=== PATIENT | male | born 1985 | race Caucasian/White ===

== ENCOUNTER 2018-07-06 13:26 | Emergency (ER) | payer MEDICAID ==
[~2018-07-06] VITALS: Ht 185.4 cm; Wt 154.0 kg
[~2018-07-06 13:26] MED LIST: ACET-812 PO; COLC0.6T69 PO; CYCL-1 PO; IBUP-1985 PO; NO HOME MEDS
[2018-07-06] MEDS ORDERED: TRAM50TA2 PO (15:15)
[2018-07-06 15:49] VITALS: BP 116/68
== END 2018-07-06 15:50 | disposition home or self-care (01) ==
LOC: ER 13:26
DX: G89.29 Other chronic pain (principal); M25.562 Pain in left knee; X58.XXXD Exposure to other specified factors, subsequent encounter
CPT/HCPCS: 99283

== ENCOUNTER 2018-12-06 13:50 | Emergency (ER) | payer MEDICAID ==
--- NOTE | 2018-12-06 14:19 | NUR ---
PT THINKS HE HAD AN ALLERGIC REACTION TO AN ALLERGY MEDICATION, HE IS FEELING BETTER NOW AND DOESNT WANT TO BE SEEN AT TAKING HIS VITALS IN TRIAGE. HR IN NORMAL RANGE.
== END 2018-12-06 15:08 | disposition left against medical advice (07) ==
LOC: ER 13:50
DX: R50.9 Fever, unspecified (principal); Z53.21 Procedure and treatment not carried out due to patient leaving prior to being seen by health care provider; Z79.899 Other long term (current) drug therapy

== ENCOUNTER 2019-08-07 11:46 | Emergency (ER) | payer MEDICAID ==
[2019-08-07 12:01] VITALS: BP 146/90
--- NOTE | 2019-08-07 12:04 | NUR ---
PT TOOK ONE 10MG NORCO AT 0900 TODAY
[2019-08-07] MEDS ORDERED: orphenadrine citrate 60mg/2ml inj. IM ONE (12:45)
--- NOTE | 2019-08-07 13:19 | NUR ---
called lab, to check to see if they had urine, she stated that she was in the process of rcv and that she had it
[2019-08-07 13:28] LABS: CLARITY,URINE CLEAR (Clear); COLOR,URINE YELLOW (Yellow); GLUCOSE, URINE NEGATIVE (Neg); KETONES,URINE NEGATIVE (Neg); LEUKOCYTE ESTERASE ,URINE NEGATIVE (Neg); NITRITES, URINE NEGATIVE (Neg); OCCULT BLOOD,URINE NEGATIVE (Neg); PH,URINE 7.5 (4.8-8.0); PROTEIN,URINE NEGATIVE (Neg); UROBILINOGEN,URINE 0.2 E.U/dL (0.2-1.0)
[2019-08-07 13:29] LABS: UA COLLECTION TYPE URINAL
[2019-08-07 13:33] LABS: URINE AMPHETAMINE SCREEN NEGATIVE (Neg); URINE BARBITUATE SCREEN NEGATIVE (Neg); URINE BENZODIAZEPINES SCREEN NEGATIVE (Neg); URINE CANNABINOID SCREEN NEGATIVE (Neg); URINE COCAINE SCREEN NEGATIVE (Neg); URINE METHADONE SCREEN NEGATIVE (Neg); URINE OPIATE SCREEN POSITIVE (Neg); URINE PHENCYCLIDINE SCREEN NEGATIVE (Neg)
[2019-08-07] MEDS ORDERED: CYCL-1 PO (13:33)
== END 2019-08-07 13:46 | disposition home or self-care (01) ==
LOC: ER 11:47
DX: M54.5 Low back pain (principal); R10.84 Generalized abdominal pain; G89.29 Other chronic pain; Z98.890 Other specified postprocedural states
CPT/HCPCS: 80305; 81003; 96372; 99283; J2360

== ENCOUNTER 2022-06-01 03:30 | Emergency (ER) | payer OTHER, MEDICAID ==
[~2022-06-01] VITALS: Ht 185.4 cm; Wt 159.1 kg
[~2022-06-01 03:30] MED LIST changes: -COLC0.6T69 PO; +COLC0.6T72 PO
[2022-06-01] MEDS ORDERED: oxyCODONE/APAP 10/325mg tablet PO ONE (06:55)
[2022-06-01] MEDS ORDERED: ketorolac trometh inj. 60 MG/2 ML VIAL IM ONE (06:55)
[2022-06-01 07:48] VITALS: BP 132/74
[2022-06-01 08:24] LABS: COLOR,URINE YELLOW (Yellow); GLUCOSE, URINE NEGATIVE (Neg); KETONES,URINE NEGATIVE (Neg); LEUKOCYTE ESTERASE ,URINE NEGATIVE (Neg); NITRITES, URINE NEGATIVE (Neg); OCCULT BLOOD,URINE SMALL (Neg); PH,URINE 5.5 (4.8-8.0); PROTEIN,URINE NEGATIVE (Neg); UROBILINOGEN,URINE 0.2 E.U/dL (0.2-1.0)
[2022-06-01 08:26] LABS: CLARITY,URINE SLIGHTLY CLOUDY (Clear); UA COLLECTION TYPE CLN CATCH MIDSTREAM
[2022-06-01 08:31] LABS: BACTERIA,URINE FEW /HPF (Neg); CAL OXALATE CRYSTALS 3+ /HPF (NEGATIVE); MUCUS STRANDS MODERATE /LPF (Neg); SQUAMOUS EPITHELIAL CELL,UR FEW /LPF (FEW); WBC,URINE 0-4 /HPF (0-4)
== END 2022-06-01 08:54 | disposition home or self-care (01) ==
LOC: ER 03:31
DX: M25.562 Pain in left knee (principal); G89.29 Other chronic pain
CPT/HCPCS: 81001; 96372; 99284; J1885

== ENCOUNTER 2023-04-02 16:11 | Emergency (ER) | payer MEDICAID ==
[~2023-04-02] VITALS: Ht 185.4 cm; Wt 159.1 kg
[2023-04-02 16:22] VITALS: BP 147/90; PULSE 85; RESP 16; TEMP 98; O2SAT 100
[2023-04-02 16:45] LABS: BILIRUBIN,URINE NEGATIVE (Neg); COLOR,URINE YELLOW (Yellow); GLUCOSE, URINE NEGATIVE (Neg); KETONES,URINE TRACE mg/dl (Neg); LEUKOCYTE ESTERASE ,URINE NEGATIVE (Neg); NITRITES, URINE NEGATIVE (Neg); OCCULT BLOOD,URINE NEGATIVE (Neg); PROTEIN,URINE NEGATIVE (Neg)
[2023-04-02 16:56] LABS: UA COLLECTION TYPE CLN CATCH MIDSTREAM
[2023-04-02 16:57] LABS: CLARITY,URINE SLIGHTLY CLOUDY (Clear)
[2023-04-02 16:58] LABS: BASOPHILS % (AUTO) 0.3 % (0-1); EOSINOPHILS # (AUTO) 0.1 X10'3 (0-0.9); EOSINOPHILS % (AUTO) 1.5 % (0-6); HEMATOCRIT 42.4 % (42.0-52.0); LYMPHOCYTES # (AUTO) 1.4 X10'3 (1.1-4.8); LYMPHOCYTES % (AUTO) 16.6 % (21-51); MEAN CORPUSCULAR HEMOGLOBIN 28.5 PG (27.0-31.0); MEAN CORPUSCULAR HGB CONC 33.1 g/dL (33.0-36.5); MEAN CORPUSCULAR VOLUME 86.2 FL (78-98); MEAN PLATELET VOLUME 7.5 FL (7.4-10.4); MONOCYTES # (AUTO) 0.7 X10'3 (0-0.9); MONOCYTES % (AUTO) 7.6 % (2-12); NEUTROPHILS # (AUTO) 6.4 X10'3 (1.8-7.7); PLATELET COUNT 234 X10'3 (140-440); RED BLOOD COUNT 4.92 X10'6 (4.70-6.10); RED CELL DISTRIBUTION WIDTH 13.9 % (11.5-14.5); WHITE BLOOD COUNT 8.6 X10'3 (4.5-11.0)
[2023-04-02 17:01] LABS: BACTERIA,URINE NONE SEEN /HPF (Neg); CAL OXALATE CRYSTALS 1+ /HPF (NEGATIVE); MUCUS STRANDS MANY /LPF (Neg); RBC,URINE NONE SEEN /HPF (0-2); SQUAMOUS EPITHELIAL CELL,UR FEW /LPF (FEW); WBC,URINE 0-4 /HPF (0-4)
[2023-04-02 17:12] LABS: ALANINE AMINOTRANSFERASE 38 U/L (12-78); ALBUMIN 3.7 G/DL (3.4-5.0); ALKALINE PHOSPHATASE 96 IU/L (46-116); ANION GAP 5 (8-16); ASPARTATE AMINO TRANSFERASE 15 U/L (10-37); BILIRUBIN,TOTAL 0.2 MG/DL (0.1-1.0); BLOOD UREA NITROGEN 10 MG/DL (7-18); BUN/CREATININE RATIO 10.2 (10.0-20.0); CHLORIDE 107 MMOL/L (99-107); CREATININE 0.98 MG/DL (0.60-1.10); GLUCOSE 154 MG/DL (70-104); LIPASE 68 U/L (73-393); POTASSIUM 4.3 MMOL/L (3.5-5.1); SODIUM 142 MMOL/L (135-145); TOTAL CARBON DIOXIDE 30.4 MMOL/L (24-32); TOTAL PROTEIN 7.3 G/DL (6.4-8.2); eCRCL 117 ML/MIN; eGFR 86 ML/MIN
== END 2023-04-02 23:34 | disposition left against medical advice (07) ==
LOC: ER 16:11
DX: R10.9 Unspecified abdominal pain (principal); Z53.21 Procedure and treatment not carried out due to patient leaving prior to being seen by health care provider
CPT/HCPCS: 36415; 80053; 81001; 83690; 85025; 99281

== ENCOUNTER 2023-12-11 13:45 | Emergency (ER) | payer MEDICAID ==
[~2023-12-11] VITALS: Ht 185.4 cm; Wt 154.6 kg
[2023-12-11 14:08] VITALS: BP 138/87
[2023-12-11 14:19] LABS: BASOPHILS % (AUTO) 0.3 % (0-1); EOSINOPHILS # (AUTO) 0.4 X10'3 (0-0.9); EOSINOPHILS % (AUTO) 4.9 % (0-6); HEMOGLOBIN 14.6 g/dl (14.0-17.9); LYMPHOCYTES # (AUTO) 2.4 X10'3 (1.1-4.8); LYMPHOCYTES % (AUTO) 26.8 % (21-51); MEAN CORPUSCULAR HEMOGLOBIN 28.3 PG (27.0-31.0); MEAN CORPUSCULAR HGB CONC 33.1 g/dL (33.0-36.5); MEAN CORPUSCULAR VOLUME 85.4 FL (78-98); MEAN PLATELET VOLUME 7.8 FL (7.4-10.4); MONOCYTES # (AUTO) 0.7 X10'3 (0-0.9); MONOCYTES % (AUTO) 7.5 % (2-12); NEUTROPHILS # (AUTO) 5.5 X10'3 (1.8-7.7); NEUTROPHILS % (AUTO) 60.5 % (42-75); PLATELET COUNT 292 X10'3 (140-440); RED BLOOD COUNT 5.15 X10'6 (4.70-6.10); RED CELL DISTRIBUTION WIDTH 14.6 % (11.5-14.5); WHITE BLOOD COUNT 9.1 X10'3 (4.5-11.0)
[2023-12-11 14:34] LABS: ALANINE AMINOTRANSFERASE 38 U/L (12-78); ALBUMIN 3.9 G/DL (3.4-5.0); ALKALINE PHOSPHATASE 111 IU/L (46-116); ANION GAP 6 (8-16); ASPARTATE AMINO TRANSFERASE 26 U/L (10-37); BILIRUBIN,TOTAL 0.5 MG/DL (0.1-1.0); BLOOD UREA NITROGEN 10 MG/DL (7-18); BUN/CREATININE RATIO 8.9 (10.0-20.0); CALCIUM 9.4 MG/DL (8.5-10.1); CHLORIDE 104 MMOL/L (99-107); CREATININE 1.12 MG/DL (0.60-1.10); GLUCOSE 98 MG/DL (70-104); SODIUM 139 MMOL/L (135-145); TOTAL CARBON DIOXIDE 28.8 MMOL/L (24-32); TOTAL PROTEIN 7.8 G/DL (6.4-8.2); eCRCL 101 ML/MIN; eGFR 73 ML/MIN
[2023-12-11 14:42] LABS: PRO BRAIN NATRIURETIC PEPTIDE 66 PG/ML (0-125)
[2023-12-11] MEDS ORDERED: PRED20TA PO (15:58)
[2023-12-11] MEDS: ipratropium/albuterol 3ml nebule NEB STA (16:26)
[2023-12-11 16:33] VITALS: PULSE 84; RESP 16; O2SAT 97
[2023-12-11 16:37] VITALS: PULSE 87; PULSE 89; RESP 16; O2SAT 97; O2SAT 99
[2023-12-11] MEDS: dexamethasone sod phosphate 10mg/ml inj PO STA (16:38)
[2023-12-11] MEDS ORDERED: ALBU8HFA INH (16:45)
[2023-12-11] MEDS: ipratropium/albuterol 3ml nebule ONE (16:52)
[2023-12-11 16:55] VITALS: RESP 18; TEMP 97.6
== END 2023-12-11 16:55 | disposition home or self-care (01) ==
LOC: ER 13:46
DX: R05.9 Cough, unspecified (principal); Z79.899 Other long term (current) drug therapy; Z79.1 Long term (current) use of non-steroidal anti-inflammatories (NSAID)
CPT/HCPCS: 36415; 71045; 80053; 83880; 84484; 85025; 93005; 94640; 99285; J1100; 94760